=== PATIENT | male | born 1950 | race Caucasian/White ===

== ENCOUNTER 2017-02-22 12:30 | Observation (INO) | payer MEDICARE, OTHER ==
[~2017-02-22 12:30] MED LIST: ACETAMINOPHEN325 M2 PO; ACIPHEX20 MG; ACTOS15 MG; ACTOS30 MG; ACTOS30 MG PO; AFEDITAB CR60 MG; AGGRENOX1 CAP PO; ALFUZOSIN HCL E10 MG PO; ALTACE10 M1 PO; ALTACE10 M2 PO; ALTACE10 M4 PO; ALTACE5 MG; ALTACE5 MG PO; AMBIEN5 M1 PO; AMBIEN5 MG PO; AMLODIPINE BESYL5 MG PO; ARICEPT10 M2 PO; ARICEPT5 M1 PO; ASPIRIN EC81 MG PO; ASPIRIN LOW STR81 MG PO; ASPIRIN325 MG; ASPIRIN325 MG PO; ATIVAN1 MG PO; ATIVAN2 MG PO; BACLOFEN10 MG PO; CALCIUM CITRAT PO; CARBIDOPA-LEVO E1 EA PO; CARBIDOPA-LEVO1 EAC9 PO; CLARITIN10 M2 PO; CLARITIN10 MG; CLOPIDOGREL75 M1 PO; CLOTRIMAZOLE10 M1 MM; COPAXONE; COUMADIN4 M1 PO; COUMADIN5 M1 PO; DAILY VALUE1 EAC1 PO; E-400400 UNIT PO; EFFEXOR PO; EFFEXOR75 MG PO; EFFIENT10 MG/TAB PO; FISH OIL 1,0001 CA; FISH OIL 1,0001 CAP PO; FISH OIL 11000 MG/CA PO; FLONASE16 G1; FLUTICASONE PRO16 G1; FLUTICASONE PRO16 GM NS; FOSAMAX70 MG; HYTRIN5 MG PO; IMODIUM2 MG; IMODIUM2 MG PO; K-DUR10 ME1 PO; LEVAQUIN500 M1 PO; LEVAQUIN500 MG PO; LIPITOR20 MG; LIPITOR20 MG PO; LIPITOR40 M1 PO; LOPRESSOR100 MG; LOPRESSOR100 MG PO; LOPRESSOR50 M1 PO; LORAZEPAM PO; MAXZIDE1 TA2 PO; METAMUCIL1 PKT; METAMUCIL1 PKT PO; METFORMIN HCL500 M2 PO; METOPROLOL TAR100 MG PO; MULTIVITAMIN1 CAP; MULTIVITAMIN1 TAB PO; NIFEDIAC CC60 MG PO; NORCO 10/325 TA1 TAB; NORCO 5-325 TA1 EACH PO; NORCO 5/325 TAB1 TAB PO; NORVASC2.5 M1 PO; NORVASC5 M1 PO; OMEPRAZOLE20 M2 PO; OMEPRAZOLE20 M3 PO; PHENYLEPHRINE; PROLIA60 MG/1 M1 SQ; PROSCAR5 M1 PO; SENOKOT-S TABL1 EACH PO; TRIAMTERENE-HCT1 TAB; TYLENOL325 M1 PO; VENLAFAXINE H37.5 M4 PO; VESICARE10 M1 PO; VITAMIN D1000 UNIT; VITAMIN D1000 UNIT PO; VITAMIN D32000 UNI1 PO; VITAMIN D32000 UNI3 PO; VITAMIN E400 UNI8 PO; VITRUM SENIOR1 EACH PO; WARFARIN SODIUM5 M2 PO; ZOCOR40 MG; ZOCOR40 MG PO; [UNRECOGNIZED DRUG - OTHER] PO
[2017-02-22 15:06] LABS: BASO % 0.2 % (0-2); EOS % 1.4 % (0-7); EOSINOPHIL ABSOLUTE COUNT 0.1 tho/cmm (0.0-0.7); HCT-HEMATOCRIT 35.8 % (36.0-53.5); HGB-HEMOGLOBIN 12.5 gm/dl (13.5-17.0); IMMATURE GRANULOCYTES ABSOLUTE 0.03 tho/cmm (0-0.03); IMMATURE GRANULOCYTES PERCENT 0.3 % (0-0.3); LYMPH % 28.1 % (20-45); LYMPH ABSOLUTE COUNT 2.5 tho/cmm (0.8-4.5); MCH (MEAN CORPUSCULAR HGB) 28.9 pg (28.0-32.0); MCHC MEAN CORPUSCULAR HGB CONC 34.9 % (32.0-36.0); MCV (MEAN CELL VOLUME) 82.7 fl (82.0-96.0); MEAN PLATELET VOLUME 9.4 cmc (9.4-12.4); MONOCYTE ABSOLUTE COUNT 0.9 tho/cmm (0.0-1.2); NEUTROPHIL ABSOLUTE COUNT 5.3 tho/cmm (1.6-8.0); NEUTROPHIL-AUTOMATED 5.3 tho/cmm (1.6-8.0); PLATELET COUNT 221 tho/cmm (150-450); RED BLOOD COUNT 4.33 mil/cmm (4.40-5.70); RED CELL DISTRIBUTION WIDTH 13.2 % (12.4-16.4); WHITE BLOOD COUNT 8.8 tho/cmm (4.0-10.0)
[2017-02-22] MEDS ORDERED: [UNRECOGNIZED DRUG - CODE] TOP (15:08)
[2017-02-22 15:11] LABS: ALBUMIN 2.9 g/dl (3.5-5.0); ALKALINE PHOSPHATASE 91 U/L (33-138); ALT/SGPT 15 U/L (12-78); BILIRUBIN,TOTAL 0.5 mg/dl (0.0-1.5); BLOOD UREA NITROGEN 12 mg/dl (6-24); CARBON DIOXIDE-VENOUS 27 mmol/L (22-32); CHLORIDE 105 mmol/l (96-110); CREATININE 0.91 mg/dl (0.60-1.30); GLUCOSE 216 mg/dL (70-110); SODIUM 143 mmol/L (135-145); eGFR VALUE FOR BLACK >90 mL/Min
[2017-02-22 15:32] LABS: ANION GAP 14 mmol/L (0-20); AST/SGOT <5 U/L (10-40); C-REACTIVE PROTEIN <0.3 mg/dl (0-0.9)
[2017-02-22 15:38] LABS: PROCALCITONIN <0.05 ng/ml (0.05-0.09)
[2017-02-22 18:07] LABS: IRON 61 ug/dl (49-181); IRON BINDING CAPACITY 241 ug/dl (250-450)
[2017-02-23 04:12] LABS: URINE APPEARANCE HAZY; URINE BILIRUBIN NEGATIVE (NEG); URINE BLOOD SMALL (NEG); URINE COLOR YELLOW; URINE GLUCOSE (UA) NEGATIVE (NEG); URINE KETONE NEGATIVE (NEG); URINE LEUKOCYTE ESTERASE POSITIVE (NEG); URINE NITRITE NEGATIVE (NEG); URINE PROTEIN MODERATE (NEG); URINE SPECIFIC GRAVITY 1.005 (1.003-1.030)
[2017-02-23 04:25] LABS: URINE BACTERIA 1+; URINE EPITHELIAL CELLS 0-1 /[HPF] (0-10); URINE RBC 0-1 /[HPF] (0-5); URINE WBC 0-2 /[HPF] (0-5)
[2017-02-23 04:36] LABS: BASO % 0.3 % (0-2); EOS % 0.7 % (0-7); EOSINOPHIL ABSOLUTE COUNT 0.1 tho/cmm (0.0-0.7); HCT-HEMATOCRIT 35.5 % (36.0-53.5); HGB-HEMOGLOBIN 12.4 gm/dl (13.5-17.0); IMMATURE GRANULOCYTES ABSOLUTE 0.02 tho/cmm (0-0.03); IMMATURE GRANULOCYTES PERCENT 0.2 % (0-0.3); MCH (MEAN CORPUSCULAR HGB) 28.8 pg (28.0-32.0); MCHC MEAN CORPUSCULAR HGB CONC 34.9 % (32.0-36.0); MCV (MEAN CELL VOLUME) 82.4 fl (82.0-96.0); MEAN PLATELET VOLUME 9.3 cmc (9.4-12.4); MONO % 8.5 % (0-12); MONOCYTE ABSOLUTE COUNT 0.9 tho/cmm (0.0-1.2); NEUTROPHILS % 72.3 % (40-80); PLATELET COUNT 220 tho/cmm (150-450); RED BLOOD COUNT 4.31 mil/cmm (4.40-5.70); RED CELL DISTRIBUTION WIDTH 13.2 % (12.4-16.4)
[2017-02-23 04:47] LABS: ANION GAP 14 mmol/L (0-20); BLOOD UREA NITROGEN 7 mg/dl (6-24); CALCIUM 7.7 mg/dl (8.5-10.5); CARBON DIOXIDE-VENOUS 26 mmol/L (22-32); CHLORIDE 107 mmol/l (96-110); CREATININE 0.67 mg/dl (0.60-1.30); GLUCOSE 123 mg/dL (70-110); PREALBUMIN 22.9 mg/dl (20.0-40.0); SODIUM 144 mmol/L (135-145); eGFR VALUE FOR BLACK >90 mL/Min
[2017-02-24 05:56] LABS: BASO % 0.2 % (0-2); EOS % 0.7 % (0-7); EOSINOPHIL ABSOLUTE COUNT 0.1 tho/cmm (0.0-0.7); HCT-HEMATOCRIT 38.2 % (36.0-53.5); HGB-HEMOGLOBIN 13.6 gm/dl (13.5-17.0); IMMATURE GRANULOCYTES ABSOLUTE 0.04 tho/cmm (0-0.03); IMMATURE GRANULOCYTES PERCENT 0.3 % (0-0.3); LYMPH ABSOLUTE COUNT 2.3 tho/cmm (0.8-4.5); MCH (MEAN CORPUSCULAR HGB) 29.4 pg (28.0-32.0); MCHC MEAN CORPUSCULAR HGB CONC 35.6 % (32.0-36.0); MCV (MEAN CELL VOLUME) 82.7 fl (82.0-96.0); MEAN PLATELET VOLUME 9.3 cmc (9.4-12.4); MONO % 10.4 % (0-12); MONOCYTE ABSOLUTE COUNT 1.4 tho/cmm (0.0-1.2); NEUTROPHIL ABSOLUTE COUNT 9.7 tho/cmm (1.6-8.0); NEUTROPHIL-AUTOMATED 9.7 tho/cmm (1.6-8.0); NEUTROPHILS % 71.4 % (40-80); PLATELET COUNT 241 tho/cmm (150-450); RED BLOOD COUNT 4.62 mil/cmm (4.40-5.70); RED CELL DISTRIBUTION WIDTH 13.4 % (12.4-16.4); WHITE BLOOD COUNT 13.6 tho/cmm (4.0-10.0)
[2017-02-24 06:05] LABS: ANION GAP 11 mmol/L (0-20); BLOOD UREA NITROGEN 4 mg/dl (6-24); CARBON DIOXIDE-VENOUS 26 mmol/L (22-32); CHLORIDE 109 mmol/l (96-110); CREATININE 0.69 mg/dl (0.60-1.30); GLUCOSE 106 mg/dL (70-110); POTASSIUM 3.3 mmol/L (3.7-5.1); SODIUM 143 mmol/L (135-145); eGFR VALUE FOR BLACK >90 mL/Min
[2017-02-24] MEDS ORDERED: LOPRESSOR50 M1 PO (09:42)
[2017-02-24] MEDS ORDERED: NORVASC2.5 M1 PO (09:43)
[2017-02-24] MEDS ORDERED: POTASSIUM CHLO10 ME2 PO (09:47)
== END 2017-02-24 12:45 | disposition home health service (06) ==
LOC: 5WE 12:30
PROVIDERS: Internal Medicine Gastroenterology; ADMIT Family Medicine
PROC: 0DB68ZZ Excision of Stomach, Via Natural or Artificial Opening Endoscopic (ICD-10-PCS; principal; 2017-02-23)
PROC: 0DB98ZX Excision of Duodenum, Via Natural or Artificial Opening Endoscopic, Diagnostic (ICD-10-PCS; 2017-02-23)
DX: K29.50 Unspecified chronic gastritis without bleeding (principal); K31.7 Polyp of stomach and duodenum; I25.2 Old myocardial infarction; I25.10 Atherosclerotic heart disease of native coronary artery without angina pectoris; I10 Essential (primary) hypertension; M19.90 Unspecified osteoarthritis, unspecified site; M48.00 Spinal stenosis, site unspecified; E11.9 Type 2 diabetes mellitus without complications; F41.9 Anxiety disorder, unspecified; F32.9 Major depressive disorder, single episode, unspecified; F51.04 Psychophysiologic insomnia; K21.9 Gastro-esophageal reflux disease without esophagitis; N40.0 Benign prostatic hyperplasia without lower urinary tract symptoms; R68.81 Early satiety; R63.4 Abnormal weight loss; E87.6 Hypokalemia; E78.00 Pure hypercholesterolemia, unspecified; J44.9 Chronic obstructive pulmonary disease, unspecified; G47.33 Obstructive sleep apnea (adult) (pediatric); K80.20 Calculus of gallbladder without cholecystitis without obstruction; R53.1 Weakness; G89.29 Other chronic pain; G35 Multiple sclerosis; G20 Parkinson's disease; Z79.82 Long term (current) use of aspirin; Z79.84 Long term (current) use of oral hypoglycemic drugs; Z79.899 Other long term (current) drug therapy; Z88.1 Allergy status to other antibiotic agents; Z88.2 Allergy status to sulfonamides; Z87.891 Personal history of nicotine dependence; Z86.73 Personal history of transient ischemic attack (TIA), and cerebral infarction without residual deficits; Z87.442 Personal history of urinary calculi; Z86.010 Personal history of colon polyps; Z98.890 Other specified postprocedural states
CPT/HCPCS: G0378; G0379; G8978-GO-CI; G8978-GP-CI; G8978-GP-CJ; G8979-GO-CH; G8979-GP-CI; G8979-GP-CJ; G8980-GP-CJ; G8987-GO-CI; G8988-GO-CH; G8989-GO-CH; J1815; J3480; Q9967

== ENCOUNTER 2017-03-06 15:13 | Inpatient (IN) | payer MEDICARE, OTHER ==
[~2017-03-06 15:13] MED LIST changes: +POTASSIUM CHLO10 ME2 PO; +[UNRECOGNIZED DRUG - CODE] TOP
[2017-03-06] MEDS ORDERED: OXYBUTYNIN CHLO10 M1 PO (15:50)
[2017-03-06] MEDS ORDERED: REMERON15 M1 PO (15:53)
[2017-03-06] MEDS ORDERED: ARICEPT10 M2 PO (15:56)
[2017-03-06 16:26] LABS: BASO % 0.2 % (0-2); EOSINOPHIL ABSOLUTE COUNT 0.1 tho/cmm (0.0-0.7); HCT-HEMATOCRIT 33.5 % (36.0-53.5); HGB-HEMOGLOBIN 11.6 gm/dl (13.5-17.0); IMMATURE GRANULOCYTES ABSOLUTE 0.02 tho/cmm (0-0.03); IMMATURE GRANULOCYTES PERCENT 0.2 % (0-0.3); LYMPH % 21.6 % (20-45); MCHC MEAN CORPUSCULAR HGB CONC 34.6 % (32.0-36.0); MCV (MEAN CELL VOLUME) 83.8 fl (82.0-96.0); MEAN PLATELET VOLUME 9.2 cmc (9.4-12.4); MONO % 10.5 % (0-12); NEUTROPHIL ABSOLUTE COUNT 6.2 tho/cmm (1.6-8.0); NEUTROPHIL-AUTOMATED 6.2 tho/cmm (1.6-8.0); NEUTROPHILS % 66.5 % (40-80); PLATELET COUNT 216 tho/cmm (150-450); RED CELL DISTRIBUTION WIDTH 13.2 % (12.4-16.4); WHITE BLOOD COUNT 9.3 tho/cmm (4.0-10.0)
[2017-03-06 16:38] LABS: ANION GAP 11 mmol/L (0-20); BLOOD UREA NITROGEN 17 mg/dl (6-24); CALCIUM 8.6 mg/dl (8.5-10.5); CARBON DIOXIDE-VENOUS 28 mmol/L (22-32); CHLORIDE 106 mmol/l (96-110); CREATININE 0.92 mg/dl (0.60-1.30); GLUCOSE 156 mg/dL (70-110); POTASSIUM 3.8 mmol/L (3.7-5.1); SODIUM 141 mmol/L (135-145); eGFR VALUE FOR BLACK >90 mL/Min
[2017-03-06 16:55] LABS: URINE BILIRUBIN NEGATIVE (NEG); URINE BLOOD NEGATIVE (NEG); URINE GLUCOSE (UA) NEGATIVE (NEG); URINE KETONE NEGATIVE (NEG); URINE LEUKOCYTE ESTERASE POSITIVE (NEG); URINE NITRITE NEGATIVE (NEG); URINE PROTEIN MODERATE (NEG); URINE SPECIFIC GRAVITY 1.015 (1.003-1.030)
[2017-03-06 16:59] LABS: URINE APPEARANCE HAZY; URINE COLOR YELLOW
[2017-03-06 17:03] LABS: URINE WBC 15-20 /[HPF] (0-5)
[2017-03-06 17:04] LABS: URINE AMORPHOUS 1+; URINE BACTERIA 2+
[2017-03-07 05:11] LABS: BASO % 0.4 % (0-2); EOS % 0.9 % (0-7); EOSINOPHIL ABSOLUTE COUNT 0.1 tho/cmm (0.0-0.7); HCT-HEMATOCRIT 33.8 % (36.0-53.5); HGB-HEMOGLOBIN 11.7 gm/dl (13.5-17.0); IMMATURE GRANULOCYTES ABSOLUTE 0.04 tho/cmm (0-0.03); IMMATURE GRANULOCYTES PERCENT 0.4 % (0-0.3); LYMPH ABSOLUTE COUNT 2.7 tho/cmm (0.8-4.5); MCH (MEAN CORPUSCULAR HGB) 28.7 pg (28.0-32.0); MCHC MEAN CORPUSCULAR HGB CONC 34.6 % (32.0-36.0); MCV (MEAN CELL VOLUME) 82.8 fl (82.0-96.0); MEAN PLATELET VOLUME 9.2 cmc (9.4-12.4); NEUTROPHIL ABSOLUTE COUNT 6.2 tho/cmm (1.6-8.0); NEUTROPHIL-AUTOMATED 6.2 tho/cmm (1.6-8.0); NEUTROPHILS % 61.3 % (40-80); PLATELET COUNT 238 tho/cmm (150-450); RED BLOOD COUNT 4.08 mil/cmm (4.40-5.70); RED CELL DISTRIBUTION WIDTH 13.2 % (12.4-16.4); WHITE BLOOD COUNT 10.1 tho/cmm (4.0-10.0)
[2017-03-07 05:22] LABS: ANION GAP 12 mmol/L (0-20); BLOOD UREA NITROGEN 12 mg/dl (6-24); CALCIUM 8.1 mg/dl (8.5-10.5); CARBON DIOXIDE-VENOUS 27 mmol/L (22-32); CHLORIDE 108 mmol/l (96-110); GLUCOSE 117 mg/dL (70-110); POTASSIUM 3.5 mmol/L (3.7-5.1); SODIUM 143 mmol/L (135-145); eGFR VALUE FOR BLACK >90 mL/Min
[2017-03-09 06:25] LABS: BASO % 0.3 % (0-2); EOS % 1.3 % (0-7); EOSINOPHIL ABSOLUTE COUNT 0.1 tho/cmm (0.0-0.7); HCT-HEMATOCRIT 33.8 % (36.0-53.5); HGB-HEMOGLOBIN 11.7 gm/dl (13.5-17.0); IMMATURE GRANULOCYTES ABSOLUTE 0.04 tho/cmm (0-0.03); IMMATURE GRANULOCYTES PERCENT 0.4 % (0-0.3); LYMPH % 25.9 % (20-45); LYMPH ABSOLUTE COUNT 2.4 tho/cmm (0.8-4.5); MCH (MEAN CORPUSCULAR HGB) 28.8 pg (28.0-32.0); MCHC MEAN CORPUSCULAR HGB CONC 34.6 % (32.0-36.0); MCV (MEAN CELL VOLUME) 83.3 fl (82.0-96.0); MEAN PLATELET VOLUME 9.1 cmc (9.4-12.4); MONOCYTE ABSOLUTE COUNT 0.9 tho/cmm (0.0-1.2); NEUTROPHIL ABSOLUTE COUNT 5.8 tho/cmm (1.6-8.0); NEUTROPHIL-AUTOMATED 5.8 tho/cmm (1.6-8.0); NEUTROPHILS % 62.1 % (40-80); PLATELET COUNT 266 tho/cmm (150-450); RED BLOOD COUNT 4.06 mil/cmm (4.40-5.70); RED CELL DISTRIBUTION WIDTH 13.2 % (12.4-16.4); WHITE BLOOD COUNT 9.3 tho/cmm (4.0-10.0)
[2017-03-09 06:39] LABS: ANION GAP 13 mmol/L (0-20); BLOOD UREA NITROGEN 14 mg/dl (6-24); CALCIUM 8.7 mg/dl (8.5-10.5); CARBON DIOXIDE-VENOUS 26 mmol/L (22-32); CHLORIDE 109 mmol/l (96-110); CREATININE 0.77 mg/dl (0.60-1.30); GLUCOSE 142 mg/dL (70-110); POTASSIUM 3.5 mmol/L (3.7-5.1); SODIUM 144 mmol/L (135-145); eGFR VALUE FOR BLACK >90 mL/Min
[2017-03-10] MEDS ORDERED: LOVENOX60 MG/0.1 SC (10:36)
[2017-03-10] MEDS ORDERED: COUMADIN5 M2 PO (10:36)
[2017-03-10] MEDS ORDERED: TYLENOL325 M2 PO (10:40)
[2017-03-10] MEDS ORDERED: AMBIEN5 M1 PO (10:41)
== END 2017-03-10 15:34 | DRG 40 ==
LOC: EDMED 15:13 → EMR2 18:39 → 5EB 21:46
PROVIDERS: Emergency Medicine; Internal Medicine; Registered Nurse; ADMIT Hospitalist
PROC: 5A09357 Assistance with Respiratory Ventilation, Less than 24 Consecutive Hours, Continuous Positive Airway Pressure (ICD-10-PCS; 2017-03-06)
PROC: 06H03DZ Insertion of Intraluminal Device into Inferior Vena Cava, Percutaneous Approach (ICD-10-PCS; principal; 2017-03-08)
PROC: B519YZA Fluoroscopy of Inferior Vena Cava using Other Contrast, Guidance (ICD-10-PCS; 2017-03-08)
DX: I63.231 Cerebral infarction due to unspecified occlusion or stenosis of right carotid arteries (principal); I26.99 Other pulmonary embolism without acute cor pulmonale; I82.411 Acute embolism and thrombosis of right femoral vein; I82.421 Acute embolism and thrombosis of right iliac vein; G20 Parkinson's disease; F02.80 Dementia in other diseases classified elsewhere, unspecified severity, without behavioral disturbance, psychotic disturbance, mood disturbance, and anxiety; I10 Essential (primary) hypertension; E78.5 Hyperlipidemia, unspecified; I25.10 Atherosclerotic heart disease of native coronary artery without angina pectoris; K21.9 Gastro-esophageal reflux disease without esophagitis; R32 Unspecified urinary incontinence; E11.9 Type 2 diabetes mellitus without complications; R47.01 Aphasia; Z79.01 Long term (current) use of anticoagulants; Z79.82 Long term (current) use of aspirin; N40.1 Benign prostatic hyperplasia with lower urinary tract symptoms; M19.90 Unspecified osteoarthritis, unspecified site; Z88.0 Allergy status to penicillin; Z88.2 Allergy status to sulfonamides; Z79.84 Long term (current) use of oral hypoglycemic drugs; I73.9 Peripheral vascular disease, unspecified; Z87.891 Personal history of nicotine dependence; Z88.1 Allergy status to other antibiotic agents; G47.33 Obstructive sleep apnea (adult) (pediatric); Z91.19 Patient's noncompliance with other medical treatment and regimen; F32.9 Major depressive disorder, single episode, unspecified
CPT/HCPCS: C1769; C1880; J1650; J1815; J2250; J3010; J7030; Q9967